=== PATIENT | female | born 1985 | race African-American/Black ===

== ENCOUNTER 2016-09-10 12:58 | Emergency (ER) | payer OTHER ==
--- NOTE | ~2016-09-10 | CT71 ---
[facility] RADIOLOGY TEXT RESULTS PATIENT: GARY MCDONALD LOCATION: [facility] : [birth year] UNIT #: [id number] AGE: [address]: Brandon Pretty MD SEX: F ORDER DR: [id number] [facility]. [place], [place] [address] [id number] MR#: [id number] Acc #: [id number] NAME: GARY MCDONALD : 1985 SEX: F STUDY DATE/TIME: 09/10/2016 12:04 UNIT: [facility] ROOM: STUDY DESCRIPTION: CT Head Wo Contrast Attending Physician: Brandon Pretty M.D. Ordering Physician: Brandon Pretty M.D. Primary Care Physician: [facility] MEDICAL IMAGING REPORT This report is preliminary unless electronic signature is present EXAM CT of the head without contrast. HISTORY 31-year-old female with headache for [address] of the head performed without contrast. This CT exam was performed with one or more of the following radiation dose reduction techniques: automatic exposure control, adjustment of mA and/or kV according to patient size, and iterative reconstruction. COMPARISON STUDIES No comparisons. FINDINGS There is no evidence of intracranial hemorrhage, acute cortical-based infarction, focal mass lesion, or hydrocephalus. The included orbits are unremarkable. There is complete opacification of the ethmoid air cells and near complete opacification of the left frontal sinus with complete opacification of the right frontal sinus and thickening of the sphenoid sinuses. The bone windows are unremarkable. IMPRESSION 1. No acute intracranial abnormality. 2. Extensive sinusitis. Dictated by... Jamar Hernandez M.D. [facility] RADIOLOGY TEXT RESULTS PATIENT: GARY MCDONALD LOCATION: [facility] : 81 UNIT #: [id number] AGE: [address]: Brandon Pretty MD SEX: F ORDER DR: THIS IS AN ELECTRONICALLY VERIFIED REPORT Jamar Hernandez M.D. at 09/12/2016 9:04 AM Nhung TD: 09/10/2016 16:30 JOB #: [id number] MEDICAL IMAGING REPORT Page 1 of 1 COPY
[~2016-09-10 12:58] MED LIST: ZITHROMAX PO
== END 2016-09-10 13:01 | disposition home or self-care (01) ==
LOC: CED 12:58
DX: R51 Headache (principal); J32.9 Chronic sinusitis, unspecified; F17.210 Nicotine dependence, cigarettes, uncomplicated; Z88.0 Allergy status to penicillin; Z91.040 Latex allergy status
CPT/HCPCS: 70450; 84703; 96361; 96374; 96375; 99284; J1200; J2550